=== PATIENT | male | born 1995 | race Caucasian/White ===

== ENCOUNTER 2017-09-23 13:57 | Emergency (ER) | payer BC ==
[~2017-09-23] VITALS: Ht 167.6 cm; Wt 60.0 kg
[2017-09-23 14:03] VITALS: TEMP 36.6; Ht 167.6 cm; Wt 60.0 kg
[2017-09-23] MEDS ORDERED: SODIUM CHLORIDE 0.9% 1000ML 1,000 ML IV STA ×2 (14:26→14:55)
--- NOTE | 2017-09-23 14:42 | DIAGNOSTIC IMAGING REPORT ---
CHEST ONE VIEW PORTABLE CLINICAL HISTORY: Hemoptysis FEVER COMPARISON STUDY: No previous studies for comparison. FINDINGS: The heart is normal in size. There are bilateral lower lung zone airspace opacities, possibly representing a pneumonitis. Clinical and radiographic follow-up is recommended. There are no pleural effusions. There is no pneumomediastinum. There is no pneumothorax.[ IMPRESSION: Bilateral lower lung zone airspace opacities, possibly representing pneumonia. Clinical and radiographic follow-up is recommended. Electronically signed by: Richard Oh M.D. 09/23/2017 2:41 PM Dictated Date/Time: 09/23/2017 2:39 PM
[2017-09-23 15:01] LABS: BASO % 0.3 %; BASO ABS # 0.02 K/uL (0-0.2); EOS % 3.8 %; EOS ABS # 0.29 K/uL (0-0.5); HEMATOCRIT 39.5 % (42-52); HEMOGLOBIN 14.9 g/dL (14.0-18.0); IG# 0.02 K/uL (0.00-0.02); LYMPH % 15.3 %; LYMPH ABS # 1.15 K/uL (1.2-3.4); MEAN CELL VOLUME 86.6 fL (80-100); MEAN CORPUSCULAR HEMOGLOBIN 32.7 pg (25-34); MEAN CORPUSCULAR HGB CONC 37.7 g/dl (32-36); MEAN PLATELET VOLUME 8.4 fL (7.4-10.4); MONO % 8.4 %; MONO ABS # 0.63 K/uL (0.11-0.59); NEUT % 71.9 %; NEUT ABS # 5.43 K/uL (1.4-6.5); PLATELET COUNT 185 K/uL (130-400); RED CELL DISTRIBUTION WIDTH SD 38.1 fL (36.4-46.3); WHITE BLOOD COUNT 7.54 K/uL (4.8-10.8)
[2017-09-23 15:12] LABS: INR 1.1 (0.9-1.1); PTT PATIENT 28.9 SECONDS (21.0-31.0)
[2017-09-23] MEDS ORDERED: EPP3/2 IM (15:12)
[2017-09-23] MEDS ORDERED: FLVHFA110 INH ×2 (15:12→16:38)
[2017-09-23] MEDS ORDERED: PRVHFAIN INH ×2 (15:12→16:38)
[2017-09-23 15:32] LABS: ALBUMIN 3.6 gm/dl (3.4-5.0); ALT/SGPT 16 U/L (12-78); BLOOD UREA NITROGEN 10 mg/dl (7-18); CALCIUM 8.7 mg/dl (8.5-10.1); CARBON DIOXIDE 25 mmol/L (21-32); CREATININE 0.86 mg/dl (0.60-1.40); GLUCOSE 126 mg/dl (70-99); LIPASE 90 U/L (73-393); POTASSIUM 3.6 mmol/L (3.5-5.1); SODIUM 135 mmol/L (136-145)
[2017-09-23 15:36] LABS: ALKALINE PHOSPHATASE 81 U/L (45-117); AST/SGOT 15 U/L (15-37); TOTAL PROTEIN 7.7 gm/dl (6.4-8.2)
--- NOTE | 2017-09-23 16:24 | DIAGNOSTIC IMAGING REPORT ---
CT ANGIOGRAM OF THE CHEST CLINICAL HISTORY: Pleuritic chest pain. Hemoptysis. COMPARISON STUDY: Chest x-ray dated 09/23/2017 TECHNIQUE: Following the IV administration of 93 mL of Optiray-320, CT angiogram of the thorax was performed from the thoracic inlet to the lung bases utilizing the pulmonary embolus protocol. Images are reviewed in the axial, sagittal, and coronal planes. IV contrast was administered without complication. MIP imaging was performed. A dose lowering technique was utilized adhering to the principles of ALARA. CT DOSE: 254.17 mGy.cm FINDINGS: There is mild there are enlarged subcarinal lymph nodes measuring 17 mm in short axis. There is mild bilateral hilar lymphadenopathy. There was no evidence of thoracic aortic dilatation. There were no pulmonary artery filling defects to indicate acute pulmonary embolism. No pleural effusions are visualized. There are multifocal airspace opacities, most pronounced within the lower lobes. There are also right middle lobe airspace opacities. There is a right upper lobe point nodules, including a 1 cm ill-defined nodule as visualized in image #[id number].] Testicle basis, these are inflammatory. Imaging subsequent to treatment is recommended in follow-up.. IMPRESSION: 1. Multifocal airspace opacities, likely representing a multifocal pneumonia. 2. 1 cm right upper lobe pulmonary nodule, likely inflammatory 3. Mild mediastinal and hilar lymphadenopathy, likely reactive 4. No evidence of acute pulmonary embolism 5. Repeat imaging subsequent to appropriate antibiotic treatment is recommended in follow-up Electronically signed by: Richard Oh M.D. 09/23/2017 4:22 PM Dictated Date/Time: 09/23/2017 4:17 PM
[2017-09-23] MEDS ORDERED: DOXYCYCLINE HYCLATE 100 MG CAP PO ONE (16:30)
[2017-09-23] MEDS ORDERED: AMOXICILLIN/CLAVULANATE TAB 875 MG TAB PO ONE (16:30)
[2017-09-23] MEDS ORDERED: AMOX875T PO (16:38)
[2017-09-23] MEDS ORDERED: DOXY100C76 PO (16:38)
--- NOTE | 2017-09-23 16:38 | EMERGENCY ROOM VISIT NOTE ---
History First contact with patient: 14:07 Chief Complaint: COUGH Stated Complaint: COUGHING UP BLOOD & FEVER Nursing Triage Summary: pt to the ED with c/o retirement through his trip in [facility] pt developed fever chills sweats and started to cough up blood and then was coughing so hard he vomitted pt c/o left sided rib pain History of Present Illness Patient is a 21-year-old [employer] student with past medical history significant for asthma who presents the emergency department accompanied by his girlfriend for evaluation of cold sweats, cough and hemoptysis. Patient reports that he traveled to [facility] to visit friends for spring, he left on 09/15. He states that about 3 days ago he woke acutely with cold sweats, and had 2 episodes of vomiting. The cold sweats persisted the following day, and he reports that he developed a cough that at times was productive of a scant amount of blood-tinged mucus. Later that day he felt well enough to go on a 2 hour hike and felt completely fine. He has subsequently noticed left sided rib pain, that is worse with deep breathing and coughing, and states that the cough has become more productive of bloody sputum. He reports that the blood is streaked in leyva mucus, but when he coughed today there was more blood than mucus. He denies any further cold sweats, he was not able to check his temperature with a thermometer to see if he actually had a fever. He did not take any Tylenol or ibuprofen, has not been using NSAIDs or aspirin products excessively. He does admit to drinking daily while he was on vacation, has not had any alcohol in the last 2 days. Also admits to smoking marijuana daily including last evening. He has never had symptoms similar to this previously. He has a history of asthma which is generally well controlled, he is on Flovent and albuterol. He reports that he is albuterol inhaler regularly through the last week. He denies any other upper respiratory symptoms including sinus or nasal congestion or ear pain or sore throat. He denies any posterior neck pain or stiffness. No skin rashes. He denies any bleeding gums, epistaxis, hematuria, blood in his bowel movements or easy bruising or bleeding. There is no personal or family history of DVT or PE. Review of Systems Review of systems as per HPI. All other systems reviewed were negative. 10 systems reviewed. Past Medical/Surgical History Medical Problems: (1) Asthma Surgical Problems: (1) H/O shoulder surgery Electronic medical records are reviewed and summarized as above/below. See Problem List. Social History Smoking Status: Never Smoker Alcohol Use: heavy Drug Use: marijuana Housing Status: lives with roommate Occupation Status: [employer] student Current/Historical Medications Scheduled Amoxicillin & Pot Clavulanate (Augmentin 875-125 mg), 1 TAB PO BID Doxycycline Monohydrate (Monodox), 100 MG PO BID Fluticasone Propionate (Flovent Hfa), 2 PUFFS INH BID Scheduled PRN Albuterol (Ventolin Hfa), 2 PUFFS INH Q4H PRN for Rescue/Asthma Symptoms Epinephrine (Epipen), 0.3 MG IM UD PRN for Allergic Reaction Physical Exam Vital Signs Date Time Temp Pulse Resp B/P (MAP) Pulse Ox O2 Delivery O2 Flow Rate FiO2 09/23/17 16:50 97 18 121/74 98 09/23/17 16:37 97 18 121/74 98 Room Air 09/23/17 15:49 81 18 120/73 98 Room Air 09/23/17 14:03 36.6 76 16 136/90 97 Physical Exam CONSTITUTIONAL: Patient is a well-appearing 21-year-old white male who is awake and alert and seated on the gurney in no acute distress. He has no cough during the entire history or exam. No conversational dyspnea. EYES: Pupils equal, round, reactive to light and accommodation. EOMs intact without nystagmus. Sclera are anicteric. ENT: Tympanic membranes intact, with normal landmarks. External canals are clear. Oral and nasopharynx are clear. Mucous membranes are moist, no lesions , tongue and gums appear normal. NECK: No bruits auscultated. Supple without lymphadenopathy. No thyromegaly. No meningeal signs. Full active range of motion without discomfort. CARDIOVASCULAR: Regular rate and rhythm, with normal S1 and S2, no murmur or gallop or rub is heard. No carotid bruits auscultated. No JVD. Peripheral pulses easy to palpable. RESPIRATORY: Breath sounds equal and clear to auscultation without wheezes, rales, or rhonchi heard. Slightly diminished breath sounds at the left lung base. Full and equal chest expansion without accessory muscle use or retractions. GI: Bowel sounds are present. Abdomen is soft, nontender, nondistended. No organomegaly. No pulsatile masses. No guarding or rebound. MUSCULOSKELETAL: Full range of motion of extremities x 4 with good strength. No cyanosis, edema, joint tenderness or swelling. No deformity. INTEGUMENTARY: No lesions or rash, normal skin turgor. NEUROLOGICAL: Alert, oriented, and cooperative. Flat affect. Cranial nerves, sensation and strength grossly intact. Pupils round, equal, and react to light , EOMs are full. LYMPH: No lymphadenopathy. Medical Decision & Procedures ER Provider Diagnostic Interpretation: CHEST ONE VIEW PORTABLE CLINICAL HISTORY: Hemoptysis FEVER COMPARISON STUDY: No previous studies for comparison. FINDINGS: The heart is normal in size. There are bilateral lower lung zone airspace opacities, possibly representing a pneumonitis. Clinical and radiographic follow-up is recommended. There are no pleural effusions. There is no pneumomediastinum. There is no pneumothorax. IMPRESSION: Bilateral lower lung zone airspace opacities, possibly representing pneumonia. Clinical and radiographic follow-up is recommended. CT ANGIOGRAM OF THE CHEST CLINICAL HISTORY: Pleuritic chest pain. Hemoptysis. COMPARISON STUDY: Chest x-ray dated 09/23/2017 TECHNIQUE: Following the IV administration of 93 mL of Optiray-320, CT angiogram of the thorax was performed from the thoracic inlet to the lung bases utilizing the pulmonary embolus protocol. Images are reviewed in the axial, sagittal, and coronal planes. IV contrast was administered without complication. MIP imaging was performed. A dose lowering technique was utilized adhering to the principles of ALARA. CT DOSE: 254.17 mGy.cm FINDINGS: There is mild there are enlarged subcarinal lymph nodes measuring 17 mm in short axis. There is mild bilateral hilar lymphadenopathy. There was no evidence of thoracic aortic dilatation. There were no pulmonary artery filling defects to indicate acute pulmonary embolism. No pleural effusions are visualized. There are multifocal airspace opacities, most pronounced within the lower lobes. There are also right middle lobe airspace opacities. There is a right upper lobe point nodules, including a 1 cm ill-defined nodule as visualized in image #[id number].] Testicle basis, these are inflammatory. Imaging subsequent to treatment is recommended in follow-up.. IMPRESSION: 1. Multifocal airspace opacities, likely representing a multifocal pneumonia. 2. 1 cm right upper lobe pulmonary nodule, likely inflammatory 3. Mild mediastinal and hilar lymphadenopathy, likely reactive 4. No evidence of acute pulmonary embolism 5. Repeat imaging subsequent to appropriate antibiotic treatment is recommended in follow-up Laboratory Results 09/23/17 14:50 Red Blood Count 4.56, Mean Corpuscular Volume 86.6, Mean Corpuscular Hemoglobin 32.7, Mean Corpuscular Hemoglobin Concent 37.7, Mean Platelet Volume 8.4, Neutrophils (%) (Auto) 71.9, Lymphocytes (%) (Auto) 15.3, Monocytes (%) (Auto) 8.4, Eosinophils (%) (Auto) 3.8, Basophils (%) (Auto) 0.3, Neutrophils # (Auto) 5.43, Lymphocytes # (Auto) 1.15, Monocytes # (Auto) 0.63, Eosinophils # (Auto) 0.29, Basophils # (Auto) 0.02 09/23/17 14:50 Test 09/23/17 14:50 White Blood Count 7.54 K/uL (4.8-10.8) Red Blood Count 4.56 M/uL (4.7-6.1) Hemoglobin 14.9 g/dL (14.0-18.0) Hematocrit 39.5 % (42-52) Mean Corpuscular Volume 86.6 fL (80-100) Mean Corpuscular Hemoglobin 32.7 pg (25-34) Mean Corpuscular Hemoglobin Concent 37.7 g/dl (32-36) Platelet Count 185 K/uL (130-400) Mean Platelet Volume 8.4 fL (7.4-10.4) Neutrophils (%) (Auto) 71.9 % Lymphocytes (%) (Auto) 15.3 % Monocytes (%) (Auto) 8.4 % Eosinophils (%) (Auto) 3.8 % Basophils (%) (Auto) 0.3 % Neutrophils # (Auto) 5.43 K/uL (1.4-6.5) Lymphocytes # (Auto) 1.15 K/uL (1.2-3.4) Monocytes # (Auto) 0.63 K/uL (0.11-0.59) Eosinophils # (Auto) 0.29 K/uL (0-0.5) Basophils # (Auto) 0.02 K/uL (0-0.2) RDW Standard Deviation 38.1 fL (36.4-46.3) RDW Coefficient of Variation 12.0 % (11.5-14.5) Immature Granulocyte % (Auto) 0.3 % Immature Granulocyte # (Auto) 0.02 K/uL (0.00-0.02) Erythrocyte Sedimentation Rate 20 mm/hr (0-14) Prothrombin Time 11.4 SECONDS (9.0-12.0) Prothromb Time International Ratio 1.1 (0.9-1.1) Activated Partial Thromboplast Time 28.9 SECONDS (21.0-31.0) Partial Thromboplastin Ratio 1.1 Anion Gap 9.0 mmol/L (3-11) Est Creatinine Clear Calc Drug Dose 114.3 ml/min Estimated GFR () 142.7 Estimated GFR (Non- 123.1 BUN/Creatinine Ratio 11.8 (10-20) Calcium Level 8.7 mg/dl (8.5-10.1) Total Bilirubin 1.8 mg/dl (0.2-1) Aspartate Amino Transf (AST/SGOT) 15 U/L (15-37) Alanine Aminotransferase (ALT/SGPT) 16 U/L (12-78) Alkaline Phosphatase 81 U/L (45-117) Troponin I < 0.015 ng/ml (0-0.045) C-Reactive Protein 11.60 mg/dl (0-0.29) Total Protein 7.7 gm/dl (6.4-8.2) Albumin 3.6 gm/dl (3.4-5.0) Globulin 4.1 gm/dl (2.5-4.0) Albumin/Globulin Ratio 0.9 (0.9-2) Lipase 90 U/L (73-393) Medications Administered Medications (Trade) Dose Ordered Sig/Palma Route Start Time Stop Time Status Last Admin Dose Admin Sodium Chloride 1,000 ml @ 999 mls/hr Q1H1M STAT IV 09/23/17 14:26 09/23/17 15:26 DC 09/23/17 14:50 999 MLS/HR Sodium Chloride 1,000 ml @ 999 mls/hr Q1H1M STAT IV 09/23/17 14:55 09/23/17 15:55 DC 09/23/17 15:15 999 MLS/HR Amoxicillin/ Clavulanate Potassium (Augmentin Tab) 875 mg ONE ONCE PO 09/23/17 16:30 09/23/17 16:32 DC 09/23/17 16:47 875 MG Doxycycline Hyclate (Vibramycin Cap) 100 mg ONE ONCE PO 09/23/17 16:30 09/23/17 16:32 DC 09/23/17 16:47 100 MG ECG Per My Interpretation Indication: chest pain Rate (beats per minute): 65 Rhythm: sinus with SA Findings: no acute ischemic change, no ectopy Comparison ECG Date: no prior available ED Course The patient was seen and assessed as above. He does not have any old records at our facility for review. He has a history of asthma, and presents the emergency department for evaluation of cold sweats, left rib pain and hemoptysis. On exam, he is afebrile and well-appearing. He is in no respiratory distress. IV lock was initiated. 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 EKG was performed and was as noted above. The patient was hydrated with normal saline solution. He received a total of 2 L in the emergency department. Laboratory studies including CBC with differential, coags, CMP, lipase, sed rate, CRP and troponin were drawn. Chest x-ray was obtained, and noted bilateral lower lung zone airspace opacities possibly representing pneumonia. There is no evidence for pneumothorax, pleural effusion or pneumomediastinum. Tthe patient's laboratory studies were largely unremarkable. His white count is not elevated. There is no left shift or bandemia. H&H is 14.9 and 39.5, platelet count 185,000. He has slight elevation of his sed rate and CRP, likely related to the pneumonia. He did have 3+ urine ketones on his urine dip , prompting the IV hydration, but otherwise urine was clear. Electrolytes without significant abnormality. Renal function is normal. He has slight elevation of his total bilirubin, otherwise transaminases are normal. Troponin is negative. Lipase is not indicative of acute pancreatitis. Given the x-ray findings, the pleuritic left rib pain, hemoptysis, and the patient's recent travel to [place] I did elect to proceed with a CT scan to assess for PE. CT did not demonstrate any evidence for pulmonary embolism. There were multifocal airspace opacities, most pronounced within the lower lobes , also a right mid lobe airspace opacity, likely representing a multifocal pneumonia. There was a right upper lobe pulmonary nodule, likely inflammatory in nature and mild mediastinal and hilar lymphadenopathy, likely reactive. Repeat imaging to ensure resolution was recommended. Patient history, presentation and ED workup were reviewed with attending physician, and treatment plan was discussed. All laboratory and diagnostic imaging studies were discussed with the patient at length.The patient will be placed on Augmentin and doxycycline, he is already on albuterol and Flovent inhalers. His exam is otherwise unremarkable, it was not felt that any steroids were indicated at this time. The patient is afebrile and well- appearing otherwise, he does not have any findings concerning for Sirs/sepsis. Differential diagnoses entertained included asthma exacerbation, pulmonary embolism, pneumonia, bronchitis, myocarditis, pericarditis, pneumothorax, musculoskeletal, anxiety, costochondritis, mass or malignancy, among others. The patient was educated on the worrisome signs or symptoms for which she should return to the emergency department for reassessment. He was encouraged to follow-up with [facility] for recheck and follow-up imaging once he has completed his antibiotics. Patient expressed understanding of this was agreeable. He was discharged home with his girlfriend in good condition. Medical Decision See emergency department course. Medication Reconcilliation Current Medication List: was personally reviewed by [facility] Blood Pressure Screening Patient's blood pressure: Normal blood pressure Blood pressure disposition: Did not require urgent referral Impression Primary Impression: Pneumonia Departure Information Prescriptions Doxycycline Monohydrate (Monodox) 100 Mg Cap 100 MG PO BID for 7 Days, #14 CAP Prov: Vivian Gibbs PA 09/23/17 Amoxicillin & Pot Clavulanate (Augmentin 875-125 mg) 1 Tab Tab 1 TAB PO BID, #20 TAB Prov: Vivian Gibbs PA 09/23/17 Fluticasone Propionate (Flovent Hfa) 120 Puffs/86050 Mcg Aero 2 PUFFS INH BID, #1 INHALER Prov: Vivian Gibbs PA 09/23/17 Albuterol (Ventolin Hfa) 60 Puffs/5400 Mcg Aers 2 PUFFS INH Q4H Y for Rescue/Asthma Symptoms, #1 INHALER Prov: Vivian Gibbs PA 09/23/17 Referrals No Doctor, Assigned (PCP) Patient Instructions My [facility] Additional Instructions Amoxicillin Clavulanate (Augmentin) 875mg: Take one pill twice daily for 10 days for your infection. All antibiotics can cause diarrhea. If this occurs and you feel worse or it does not resolve in 1-2 days follow up with your doctor or return to the Emergency Department as this could be signs of serious underlying problems. Any medication can cause an allergic reaction, stop the pills immediately and return to the ER for rash, hives, breathing difficulties, or swelling. Doxycycline 100mg: Take one pill twice daily for seven days for your infection. Take with food, but avoid dairy. Avoid prolonged sun exposure since this medication makes you temporarily more susceptible to sunburns. All antibiotics can cause diarrhea. If this occurs and you feel worse or it does not resolve in 1-2 days follow up with your doctor or return to the Emergency Department as this could be signs of serious underlying problems. Any medication can cause an allergic reaction, stop the pills immediately and return to the ER for rash, hives, breathing difficulties, or swelling. Continue Albuterol and Flovent. Ibuprofen(Motrin, Advil) may be used for fever or pain. Use 600mg every six hours as needed. Take with food. Avoid using more than 2400mg in a 24 hour period. Do not use 2400mg per day for more than three consecutive days without physician direction. Prolonged inappropriate use can lead to stomach upset or ulcers. This is available over the counter and typically comes in 200mg tablets. (AND/OR) Acetaminophen(Tylenol) may be used for fever or pain. Use 1000mg every eight hours as needed. Avoid using more than 3000mg in a 24 hour period. This is available over the counter. Controlling your fever with Tylenol and Ibuprofen as above will make you feel better. Rest and drink plenty of fluids. Avoid strenuous activity until your symptoms resolve and your breathing returns to normal. Continue current medications. Return to the ER for chest pain, difficulty breathing, persistent fevers, vomiting, worsening of your condition, or as needed Follow-up with [facility] in 2-3 weeks for recheck and repeat chest x-ray to ensure resolution of your pneumonia. Problem Qualifiers Primary Impression: Pneumonia Pneumonia type: due to unspecified organism Laterality: bilateral Lung location: lower lobe of lung Qualified Codes: J18.1 - Lobar pneumonia, unspecified organism
[2017-09-23 16:50] VITALS: BP 121/74; PULSE 97; O2SAT 98
== END 2017-09-23 16:50 | disposition home or self-care (01) ==
LOC: C.EDB 14:01
DX: J18.9 Pneumonia, unspecified organism (principal); R82.4 Acetonuria; J45.909 Unspecified asthma, uncomplicated; F12.90 Cannabis use, unspecified, uncomplicated; Z72.89 Other problems related to lifestyle

== ENCOUNTER 2017-09-30 16:18 | Emergency (ER) | payer BC ==
[~2017-09-30] VITALS: Ht 167.6 cm; Wt 61.4 kg
[~2017-09-30 16:18] MED LIST: AMOX875T PO; DOXY100C76 PO; EPP3/2 IM; FLVHFA110 INH; PRVHFAIN INH
[2017-09-30 16:27] VITALS: Ht 167.6 cm; Wt 61.4 kg
[2017-09-30] MEDS ORDERED: METHYLPREDNISOLONE 125 MG VIAL IV STA (16:42)
[2017-09-30] MEDS ORDERED: ALBUT/IPRATROP 3MG/0.5MG NEB 3 ML VIAL INH STA (16:42)
[2017-09-30] MEDS ORDERED: KETOROLAC TROMETHAMINE 30 MG/ML VIAL IV STA (16:42)
[2017-09-30] MEDS ORDERED: ACETAMINOPHEN 500 MG TAB PO STA (16:42)
--- NOTE | 2017-09-30 16:55 | EMERGENCY ROOM VISIT NOTE ---
History Report prepared by Frieda: Ted Beckwith Under the Supervision of: Dr. Ric Tillman M.D. First contact with patient: 16:33 Chief Complaint: COUGH Stated Complaint: ANTIBIOTIC NOT WORKING,CONGESTED History of Present Illness The patient is a 21 year old male who presents to the Emergency Room with complaints of intermittent left sided back pain that began a week ago. He rates his discomfort as an 8/10 in severity. He reports his pain is worsened with breathing, coughing, moving, laying down, and standing up. He states that his pain is relieved with sitting. The patient describes the pain as a shooting sharp pain. The patient reports that he developed chest pressure a couple of weeks ago, which caused him to go to [facility]. He reports he had an x-ray done that was negative. The patient states that he recently went on a trip to [facility] when he started to cough up bloody and dark mucous. He reports that he developed a fever and shortness of breath 9 days ago. He states that he came to the ED on September 23 for his cough and he had a CT done. The patient states that his CT was negative for a clot, but states he was diagnosed with pneumonia. He reports that he was sent home with Augmentin and Doxycycline, which he admits he has been taking. The patient states that his symptoms from his pneumonia have been persistent and denies any worsening or alleviation of symptoms. He states that he developed a sharp pain on the left side of his back about a week ago that is present upon coughing, breathing, moving, standing up, and laying flat. The patient states that he has been taking Advil for his symptoms without any relief of symptoms. He reports that he has been eating and drinking normally. The patient reports that he has a history of pneumonia, which he had three times in the past, he also has a history of asthma. Source of History: patient Onset: a week ago Position: back (left) Symptom Intensity: 8/10 Timing: intermittent Modifying Factors (Worsening): breathing, movement, other (coughing, standing up, laying down) Modifying Factors (Relieving): other (sitting, Advil) Associated Symptoms: + fevers, + cough, + SOB Review of Systems See HPI for pertinent positives & negatives. A total of 10 systems reviewed and were otherwise negative. Past Medical & Surgical Medical Problems: (1) Asthma Surgical Problems: (1) H/O shoulder surgery Family History Patient reports no known family medical history. Social History Smoking Status: Current Some Day Smoker Alcohol Use: heavy Drug Use: marijuana Housing Status: lives with roommate Occupation Status: [employer] student Current/Historical Medications Scheduled Amoxicillin & Pot Clavulanate (Augmentin 875-125 mg), 1 TAB PO BID Doxycycline (Monohydrate) (Monodox), 100 MG PO BID Fluticasone Propionate (Flovent Hfa), 2 PUFFS INH BID Scheduled PRN Albuterol Hfa (Ventolin Hfa), 2 PUFFS INH Q4H PRN for SOB/ASTHMA SYMPTOMS Epinephrine (Epipen), 0.3 MG IM UD PRN for Allergic Reaction Allergies Coded Allergies: Nut Tree (Verified Allergy, Severe, ANAPHYLAXIS, 09/30/17) Pea (Verified Allergy, Severe, HIVES, 09/30/17) Physical Exam Vital Signs Date Time Temp Pulse Resp B/P (MAP) Pulse Ox O2 Delivery O2 Flow Rate FiO2 09/30/17 18:41 71 18 131/71 95 Room Air 09/30/17 16:27 36.5 88 18 141/82 93 Room Air Physical Exam GENERAL: Patient is in no acute distress. HEENT: No acute trauma, normocephalic atraumatic, mucous membranes moist, no nasal congestion, no scleral icterus. NECK: No stridor, no adenopathy, no meningismus, trachea is midline. LUNGS: Diminished breath sounds bilaterally, no wheeze, no rhonchi. HEART: Without murmurs gallops or rubs, regular rate and rhythm. ABDOMEN: Soft, nontender, bowel sounds positive, no hernias, no peritonitis. BACK: No discomfort with palpation of the lower thoracic back on the left or anywhere. No discomfort with palpation or compression of his ribs. EXTREMITIES: No cyanosis or edema, full range of motion of all the joints without pain or difficulty, no signs for acute trauma. NEUROLOGIC: Oriented x 3, no acute motor or sensory deficits, no focal weakness. SKIN: No rash, no jaundice, no diaphoresis. Medical Decision & Procedures ER Provider Diagnostic Interpretation: Radiology results as stated below per my review and radiologist interpretation: CHEST 2 VIEWS ROUTINE HISTORY: 21 years-old Male EVALUATE RESPIRATORY DISTRESS.DYSPNEA acute respiratory distress COMPARISON: Chest radiograph and CTA chest 09/23/2017 TECHNIQUE: PA and lateral views of the chest FINDINGS: Cardiomediastinal and hilar silhouettes are within normal limits. No pneumothorax. No large pleural effusion or overt pulmonary edema. There are persistent subsegmental bibasilar consolidative opacities which have not significantly changed from comparison. Bones appear grossly intact. IMPRESSION: Persistent subsegmental bibasilar consolidative opacities have not significantly changed from comparison suggesting ongoing infectious or inflammatory pneumonitis. Continued follow-up recommended. The above report was generated using voice recognition software. It may contain grammatical, syntax or spelling errors. Electronically signed by: Scooby Rogers M.D. 09/30/2017 5:33 PM Dictated Date/Time: 09/30/2017 5:30 PM Laboratory Results 09/30/17 16:58 Red Blood Count 5.11, Mean Corpuscular Volume 86.3, Mean Corpuscular Hemoglobin 32.3, Mean Corpuscular Hemoglobin Concent 37.4, Mean Platelet Volume 8.2, Neutrophils (%) (Auto) 69.9, Lymphocytes (%) (Auto) 18.3, Monocytes (%) (Auto) 6.3, Eosinophils (%) (Auto) 4.8, Basophils (%) (Auto) 0.4, Neutrophils # (Auto) 5.25, Lymphocytes # (Auto) 1.37, Monocytes # (Auto) 0.47, Eosinophils # (Auto) 0.36, Basophils # (Auto) 0.03 09/30/17 16:58 Test 09/30/17 16:58 09/30/17 18:15 White Blood Count 7.50 K/uL (4.8-10.8) Red Blood Count 5.11 M/uL (4.7-6.1) Hemoglobin 16.5 g/dL (14.0-18.0) Hematocrit 44.1 % (42-52) Mean Corpuscular Volume 86.3 fL (80-100) Mean Corpuscular Hemoglobin 32.3 pg (25-34) Mean Corpuscular Hemoglobin Concent 37.4 g/dl (32-36) Platelet Count 284 K/uL (130-400) Mean Platelet Volume 8.2 fL (7.4-10.4) Neutrophils (%) (Auto) 69.9 % Lymphocytes (%) (Auto) 18.3 % Monocytes (%) (Auto) 6.3 % Eosinophils (%) (Auto) 4.8 % Basophils (%) (Auto) 0.4 % Neutrophils # (Auto) 5.25 K/uL (1.4-6.5) Lymphocytes # (Auto) 1.37 K/uL (1.2-3.4) Monocytes # (Auto) 0.47 K/uL (0.11-0.59) Eosinophils # (Auto) 0.36 K/uL (0-0.5) Basophils # (Auto) 0.03 K/uL (0-0.2) RDW Standard Deviation 37.8 fL (36.4-46.3) RDW Coefficient of Variation 12.0 % (11.5-14.5) Immature Granulocyte % (Auto) 0.3 % Immature Granulocyte # (Auto) 0.02 K/uL (0.00-0.02) Erythrocyte Sedimentation Rate 15 mm/hr (0-14) Anion Gap 6.0 mmol/L (3-11) Est Creatinine Clear Calc Drug Dose 99.6 ml/min Estimated GFR () 121.8 Estimated GFR (Non- 105.1 BUN/Creatinine Ratio 16.6 (10-20) Calcium Level 8.8 mg/dl (8.5-10.1) Total Bilirubin 0.6 mg/dl (0.2-1) Aspartate Amino Transf (AST/SGOT) 13 U/L (15-37) Alanine Aminotransferase (ALT/SGPT) 16 U/L (12-78) Alkaline Phosphatase 86 U/L (45-117) Troponin I < 0.015 ng/ml (0-0.045) C-Reactive Protein 1.02 mg/dl (0-0.29) Total Protein 7.9 gm/dl (6.4-8.2) Albumin 3.6 gm/dl (3.4-5.0) Globulin 4.3 gm/dl (2.5-4.0) Albumin/Globulin Ratio 0.8 (0.9-2) Laboratory results reviewed by me. Medications Administered Medications (Trade) Dose Ordered Sig/Palma Route Start Time Stop Time Status Last Admin Dose Admin Methylprednisolone Sodium Succinate (Solu-Medrol IV) 80 mg NOW STAT IV 09/30/17 16:42 09/30/17 16:46 DC 09/30/17 17:21 80 MG Ketorolac Tromethamine (Toradol Inj) 30 mg NOW STAT IV 09/30/17 16:42 09/30/17 16:47 DC 09/30/17 17:21 30 MG Albuterol/ Ipratropium (Duoneb) 3 ml NOW STAT INH 09/30/17 16:42 09/30/17 16:47 DC 09/30/17 17:17 3 ML Levofloxacin (Levaquin / D5W) 750 mg NOW STAT IV 09/30/17 17:54 09/30/17 17:56 DC 09/30/17 18:41 750 MG ECG Per My Interpretation Indication: SOB/dyspnea Rate (beats per minute): 73 Rhythm: normal sinus Findings: other (Mild diffuse early repolarization, No PVCs, No PACs) ED Course 1637: The patient was evaluated in room A03. A complete history and physical exam was performed. 164: Ordered Duoneb 3 ml INH, Toradol Injection 30 mg IV, Solu-Medrol 80 mg IV. 174: I discussed the patients case with Dr. Sanford, [facility] Pulmonology. He recommended hospitalization and IV antibiotics. He asked that I order an ultrasound of both lower extremities. 175: Ordered Levofloxacin 750 mg IV. 1800: Ordered Zosyn 4.5 gm IV. 180: I reevaluated the patient and updated him on his results. 1817: I discussed the patients case with Dr. Huertas, [facility] Hospitalist. He understands the patients condition and agrees to accept the patient. The patient will be further evaluated. Medical Decision The patient is a 21 year old male who presents to the Emergency Room with complaints of intermittent left sided back pain that began a week ago. Differential diagnoses considered include pleurisy, failed outpatient treatment , pneumonia, pneumothorax, rib fracture, musculoskeletal pain, pericarditis, myocarditis. There is no leukocytosis or concerning anemia. No significant electrolyte abnormality, kidney failure or hepatitis. CRP and sed rate are somewhat elevated but improved compared to the values from a week ago. Blood cultures are pending. Influenza test is pending. Chest film shows similar findings to his last visit, the pneumonia is still present. The patient was given a DuoNeb, IV Levaquin and IV Zosyn. He received IV Solu- Medrol and IV Toradol. The patient is resting. I discussed his case with pulmonology, the patient needs hospitalization for further workup and for IV antibiotic therapy. I discussed my findings with the patient and case management. I talked with the on-call hospitalist. The patient is failing treatment as an outpatient for pneumonia. Hospitalization is required. Medication Reconcilliation Current Medication List: was personally reviewed by me Blood Pressure Screening Patient's blood pressure: Elevated blood pressure Blood pressure disposition: Elevated BP felt to be situational Consults Time Called: 173 Consulting Physician: Dr. Sanford, [facility] Pulmonology Returned Call: 174 I discussed the patients case with Dr. Snaford [facility] Pulmonology. He recommended hospitalization and IV antibiotics. He asked that I order an ultrasound of both lower extremities. Additional Consults: Time Called: 174 Consulted Physician: Dr. Huertas [facility] Hospitalist Returned Call: 181 Additional Comments: I discussed the patients case with Dr. Huertas [facility] Hospitalist. He understands the patients condition and agrees to accept the patient. The patient will be further evaluated. Impression Primary Impression: PNA (pneumonia) Additional Impressions: Pleuritic chest pain Failure of outpatient treatment Scribe Attestation The scribe's documentation has been prepared under my direction and personally reviewed by me in its entirety. I confirm that the note above accurately reflects all work, treatment, procedures, and medical decision making performed by me. Departure Information Dispostion Being Evaluated By Hospitalist Referrals No Doctor, Assigned (PCP) Patient Instructions My [facility] Problem Qualifiers
[2017-09-30 17:17] LABS: BASO % 0.4 %; BASO ABS # 0.03 K/uL (0-0.2); EOS % 4.8 %; EOS ABS # 0.36 K/uL (0-0.5); HEMATOCRIT 44.1 % (42-52); HEMOGLOBIN 16.5 g/dL (14.0-18.0); IG# 0.02 K/uL (0.00-0.02); LYMPH % 18.3 %; LYMPH ABS # 1.37 K/uL (1.2-3.4); MEAN CELL VOLUME 86.3 fL (80-100); MEAN CORPUSCULAR HEMOGLOBIN 32.3 pg (25-34); MEAN CORPUSCULAR HGB CONC 37.4 g/dl (32-36); MEAN PLATELET VOLUME 8.2 fL (7.4-10.4); MONO % 6.3 %; MONO ABS # 0.47 K/uL (0.11-0.59); NEUT % 69.9 %; NEUT ABS # 5.25 K/uL (1.4-6.5); PLATELET COUNT 284 K/uL (130-400); RED CELL DISTRIBUTION WIDTH SD 37.8 fL (36.4-46.3)
--- NOTE | 2017-09-30 17:34 | DIAGNOSTIC IMAGING REPORT ---
CHEST 2 VIEWS ROUTINE HISTORY: 21 years-old Male EVALUATE RESPIRATORY DISTRESS.DYSPNEA acute respiratory distress COMPARISON: Chest radiograph and CTA chest 09/23/2017 TECHNIQUE: PA and lateral views of the chest FINDINGS: Cardiomediastinal and hilar silhouettes are within normal limits. No pneumothorax. No large pleural effusion or overt pulmonary edema. There are persistent subsegmental bibasilar consolidative opacities which have not significantly changed from comparison. Bones appear grossly intact. IMPRESSION: Persistent subsegmental bibasilar consolidative opacities have not significantly changed from comparison suggesting ongoing infectious or inflammatory pneumonitis. Continued follow-up recommended. The above report was generated using voice recognition software. It may contain grammatical, syntax or spelling errors. Electronically signed by: Scooby Rogers M.D. 09/30/2017 5:33 PM Dictated Date/Time: 09/30/2017 5:30 PM
[2017-09-30 17:40] LABS: ALBUMIN 3.6 gm/dl (3.4-5.0); ALT/SGPT 16 U/L (12-78); AST/SGOT 13 U/L (15-37); BLOOD UREA NITROGEN 17 mg/dl (7-18); CALCIUM 8.8 mg/dl (8.5-10.1); CARBON DIOXIDE 29 mmol/L (21-32); CREATININE 1.01 mg/dl (0.60-1.40); GLUCOSE 100 mg/dl (70-99); POTASSIUM 3.6 mmol/L (3.5-5.1); SODIUM 137 mmol/L (136-145)
[2017-09-30 17:44] LABS: ALKALINE PHOSPHATASE 86 U/L (45-117); TOTAL PROTEIN 7.9 gm/dl (6.4-8.2)
[2017-09-30] MEDS ORDERED: LEVAQUIN 750MG / 150ML D5W IV STA (17:54)
[2017-09-30] MEDS ORDERED: DOXY100C41 PO (17:57)
[2017-09-30] MEDS ORDERED: VNTHFA/IN INH (17:57)
[2017-09-30] MEDS ORDERED: FLVHFA110 INH (17:57)
[2017-09-30] MEDS ORDERED: AMOX875T PO (17:57)
[2017-09-30] MEDS ORDERED: PIPERACILLIN/TAZOBACTAM 4.5 GM/100ML D5W IV STA (18:00)
[2017-09-30] MEDS ORDERED: ACETAMINOPHEN 325 MG TAB PO PRN (18:45)
[2017-09-30] MEDS ORDERED: EPINEPHRINE ADULT AUTO-INJECT 0.3 MG SYR IM PRN (18:45)
[2017-09-30] MEDS ORDERED: POLYETHYLENE (MIRALAX) 17 GM PACK PO PRN (18:45)
[2017-09-30] MEDS ORDERED: MAGNESIUM HYDROXIDE SUSP 30 ML UDC PO PRN (18:45)
[2017-09-30] MEDS ORDERED: KETOROLAC TROMETHAMINE 30 MG/ML VIAL IV PRN (18:45)
[2017-09-30] MEDS ORDERED: ALBUTEROL HFA 8 GM INHALER INH PRN (18:45)
[2017-09-30] MEDS ORDERED: ONDANSETRON INJ 2 MG/ML 2 ML VIAL IV PRN (18:45)
[2017-09-30] MEDS ORDERED: ALUMINUM/MAGNESIUM/SIMETH (MAALOX MAX) 30 ML UDC PO PRN (18:45)
[2017-09-30] MEDS ORDERED: IV FLUIDS COMPLETED PRN (19:00)
[2017-09-30 19:12] LABS: INFLUENZA A PCR Neg for Influ A (NEG); INFLUENZA B PCR Neg for Influ B (NEG)
--- NOTE | 2017-09-30 19:13 | DIAGNOSTIC IMAGING REPORT ---
BILATERAL LOWER EXTREMITY VENOUS DOPPLER HISTORY: Acute hemoptysis with questioned DVT hemoptysis with neg chest ct COMPARISON STUDY: CTA of the chest 09/23/2017. FINDINGS: There is normal compressibility, flow, and augmentation within the bilateral lower extremity deep venous systems. IMPRESSION: No sonographic evidence of deep venous thrombosis within the right or left lower extremity. Electronically signed by: Scooby Rogers M.D. 09/30/2017 7:12 PM Dictated Date/Time: 09/30/2017 7:11 PM
[2017-09-30] MEDS ORDERED: IBUP-1050 PO (19:55)
--- NOTE | 2017-09-30 20:10 | Discharge Instructions ---
Discharge Instructions Date of Service Sep 30, 2017. Admission Reason for Admission: Antibiotic Not Working,Congested Discharge Discharge Diagnosis / Problem: likely slow to resolve pneumonia - see below Discharge Goals Goal(s): Diagnostic testing Activity Recommendations Activity Limitations: resume your previous activity . Instructions / Follow-Up Instructions / Follow-Up after further review, the most likely issue at hand is just a fairly dense, but slowly resolving pneumonia as we discussed: -an infection that hasn't gone away is fairly unlikely - the resolution of your "constitutional symptoms" (most notably the sweats), the fact that you're not getting worse, and most notably the negative procalcitonin (a lab test that, when negative, strongly reduces the probability that someone has an active lung infection) makes an infection that won't go away very unlikely. -the negative CT chest for blood clot last week, combined with the negative ultrasound for blood clot in your legs tonight, makes a blood clot with downstream lung tissue (called a pulmonary infarct) very unlikely -the other oddities that can "masquerade" as a pneumonia involve auto-immune and inflammatory processes that are VERY rare. simply by the low prevalence of those processes (vasculitis, wegeners, goodpastures to "put a face on them") it' s unlikely that this is what's going on. however, as we have our primary care team follow you through to "better" if you were to fail to improve then we can always double back and look for these kinds of problems later, especially since you're overall so stable -this appears far and away most consistent with what was a fairly dense pneumonia, with a lot of inflammation, that is just slowly getting better -the cough getting worse and more productive occurs in about 80% of people as they improve from a pneumonia - as the antibiotics and your immune system kill the bacteria, then your lungs are able to move things out. inflammation can have bleeding associated with it, so the coughing up blood is not at all abnormal with a dense, inflamed pneumonia. the change to darker often is indicative of the blood sitting in there for a while before it comes up. after a few more days (maybe a week at the most) of the cough being worse, i would expect it to get better day by day) -the chest pain is right in the area that the pneumonia was most dense. pneumonias create a lot of inflammation, and inflammation is a liquid process. as the inflammation oozes from your lung into your chest wall (the inflammation - NOT the infection - to be clear) your chest wall can then start to signal your brain the same kind of pain as if you got kicked in the chest. this is also fairly typical with a pneumonia to occur. we'll treat that with ibuprofen (over the counter is 200mg pills, take 3 at a time for now for a 600mg dose, up to every six hours as needed to keep the pain at bay. take it with some food to reduce the chances of upsetting your stomach); it should, much like the cough , start to get better over the next week or so then likely slowly go away -the shortness of breath, particularly with exertion (and coinciding fatigue ) are two of the most common symptoms we'll see for a while after a pneumonia. it would be more common than not for it to take until mid/late october for you to totally feel like yourself again as far as getting short-winded or tired. look for improvement in this respect in 3-4 day intervals (day to day improvement will happen, but it'll be so slow that it's hard to really probation officer - like watching grass grow) if you slowly improve like above, then everything would fit with a very inflamed pneumonia that was just slow to get better. we'll be working on setting you up with one of our family medicine residents ([facility], [address], ) -- the goal would be to get you in this week, then see the same doc about one a week until you're good as new - so that if anything "off the beaten path" were to occur then we'd be able to act on it right away. our nurse navigator takes care of these kinds of referrals/ appointments, so expect to hear from her - but as a safety net, if you haven't gotten a call by Sunday, please call the office at the above number, and let them know that Dr Huertas needs you seen by a resident this week, and then likely the same resident frequently until you're back to good as new. sometime in ~6 weeks they'll want to check one more follow up chest Xray to show that things have totally resolved. between here and there, the biggest "red flag" symptoms would be if you were to: -develop a new fever (this would not fit with the above, and would warrant getting checked out right away) -develop new/worse shortness of breath (if it gets your attention, get checked out) Current Hospital Diet Patient's current hospital diet: Regular Diet Discharge Diet Recommended Diet: Regular Diet Pending Studies Studies pending at discharge: no List of pending studies: blood cultures have been drawn, they will "cook" them in the microbiology lab for the next five days, but i do not expect any growth/findings at all Medical Emergencies . Who to Call and When: Medical Emergencies: If at any time you feel your situation is an emergency, please call 911 immediately. . Non-Emergent Contact Non-Emergency issues call your: Primary Care Provider (see above) . . "Provider Documentation" section prepared by Brock Huertas. .
[2017-09-30 20:13] VITALS: BP 117/74; PULSE 82; TEMP 36.5; O2SAT 95
--- NOTE | 2017-09-30 20:20 | Medical Consult ---
Consultation Date of Consultation: Sep 30, 2017. Attending Physician: Past Medical/Surgical History Medical Problems: (1) Asthma Status: Chronic (2) Failure of outpatient treatment Status: Acute (3) Pleuritic chest pain Status: Acute (4) PNA (pneumonia) Status: Acute (5) Pneumonia Status: Acute Family History Patient reports no known family medical history. Social History Smoking Status: Current Some Day Smoker Drug Use: marijuana Housing Status: lives with roommate Occupation Status: [employer] student Allergies Coded Allergies: Nut Tree (Verified Allergy, Severe, ANAPHYLAXIS, 09/30/17) Pea (Verified Allergy, Severe, HIVES, 09/30/17) Current Inpatient Medications Current Inpatient Medications Medications (Trade) Dose Ordered Sig/Palma Route Start Time Stop Time Status Last Admin Dose Admin Acetaminophen (Tylenol Tab) 650 mg Q4H PRN PO 09/30/17 18:45 10/30/17 18:44 Al Hydrox/Mg Hydrox/Simethicone (Maalox Max Susp) 15 ml Q4H PRN PO 09/30/17 18:45 10/30/17 18:44 Magnesium Hydroxide (Milk Of Magnesia Susp) 30 ml Q6H PRN PO 09/30/17 18:45 10/30/17 18:44 Polyethylene (Miralax Powder Packet) 17 gm DAILY PRN PO 09/30/17 18:45 10/30/17 18:44 Ondansetron HCl (Zofran Inj) 4 mg Q6H PRN IV 09/30/17 18:45 10/30/17 18:44 Albuterol (Ventolin Hfa Inhaler) 2 puffs Q4H PRN INH 09/30/17 18:45 10/30/17 18:44 UNV Epinephrine (Epipen) 0.3 mg UD PRN IM 09/30/17 18:45 10/30/17 18:44 UNV Fluticasone Propionate (Flovent Hfa 110MCG Inhaler) 2 puffs BID INH 09/30/17 21:00 10/30/17 20:59 UNV Ketorolac Tromethamine (Toradol Inj) 30 mg Q6H PRN IV 09/30/17 18:45 10/05/17 18:44 UNV Miscellaneous (Iv Fluids Completed) 1 ea PRN PRN N/A 09/30/17 19:00 09/30/18 18:59 Physical Exam Date Time Temp Pulse Resp B/P (MAP) Pulse Ox O2 Delivery O2 Flow Rate FiO2 09/30/17 20:13 36.5 82 16 95 Room Air 09/30/17 20:00 82 16 117/74 95 Room Air 09/30/17 18:41 71 18 131/71 95 Room Air 09/30/17 16:27 36.5 88 18 141/82 93 Room Air Laboratory Results Last 24 Hours Test 09/30/17 16:58 09/30/17 18:15 White Blood Count 7.50 K/uL Red Blood Count 5.11 M/uL Hemoglobin 16.5 g/dL Hematocrit 44.1 % Mean Corpuscular Volume 86.3 fL Mean Corpuscular Hemoglobin 32.3 pg Mean Corpuscular Hemoglobin Concent 37.4 g/dl Platelet Count 284 K/uL Mean Platelet Volume 8.2 fL Neutrophils (%) (Auto) 69.9 % Lymphocytes (%) (Auto) 18.3 % Monocytes (%) (Auto) 6.3 % Eosinophils (%) (Auto) 4.8 % Basophils (%) (Auto) 0.4 % Neutrophils # (Auto) 5.25 K/uL Lymphocytes # (Auto) 1.37 K/uL Monocytes # (Auto) 0.47 K/uL Eosinophils # (Auto) 0.36 K/uL Basophils # (Auto) 0.03 K/uL RDW Standard Deviation 37.8 fL RDW Coefficient of Variation 12.0 % Immature Granulocyte % (Auto) 0.3 % Immature Granulocyte # (Auto) 0.02 K/uL Erythrocyte Sedimentation Rate 15 mm/hr Sodium Level 137 mmol/L Potassium Level 3.6 mmol/L Chloride Level 103 mmol/L Carbon Dioxide Level 29 mmol/L Anion Gap 6.0 mmol/L Blood Urea Nitrogen 17 mg/dl Creatinine 1.01 mg/dl Est Creatinine Clear Calc Drug Dose 99.6 ml/min Estimated GFR () 121.8 Estimated GFR (Non- 105.1 BUN/Creatinine Ratio 16.6 Random Glucose 100 mg/dl Calcium Level 8.8 mg/dl Total Bilirubin 0.6 mg/dl Aspartate Amino Transf (AST/SGOT) 13 U/L Alanine Aminotransferase (ALT/SGPT) 16 U/L Alkaline Phosphatase 86 U/L Troponin I < 0.015 ng/ml C-Reactive Protein 1.02 mg/dl Total Protein 7.9 gm/dl Albumin 3.6 gm/dl Globulin 4.3 gm/dl Albumin/Globulin Ratio 0.8 Procalcitonin < 0.05 ng/ml Influenza Type A (RT-PCR) Neg for Influ A Influenza Type B (RT-PCR) Neg for Influ B Assessment & Plan consult #[id number]
[2017-09-30 20:21] VITALS: BP 114/88; PULSE 72; O2SAT 96
--- NOTE | 2017-09-30 20:51 | HISTORY & PHYSICAL EXAMINATION ---
DATE OF ADMISSION: 09/30/2017 CHIEF COMPLAINT: Hemoptysis and chest pain. HISTORY OF PRESENT ILLNESS: The patient is a very pleasant 21-year-old male who presented to the ER with ongoing hemoptysis and chest pain. He was here on 09/23/2017 with cough and hemoptysis having just gotten back from Spring break trip to [facility]. In [place], he also had a couple nights of sweats and feeling terrible. He did not know if he actually had a fever or not. He did have some nausea and vomiting and in the ER at that point in time he was found on a CT scan to have a fairly dense left lower lobe pneumonia as well as smaller patchy right lower and right mid pneumonias. He was treated with Augmentin and doxycycline and discharged to home. Since that time, he has not had any fevers, chills, or sweats. His constitutional symptoms have totally gone away. His shortness of breath, fatigue and dyspnea on exertion are not better but definitely are not worse, but he has had worsening left-sided pleuritic type chest pain worse whenever he takes a deep breath as well as ongoing cough and hemoptysis that seems to be worsening in terms of its frequency and production. He also notes a darkening of the blood that he is coughing up where now it is more of a dark red and at times even black. Other than that he has no new symptoms. REVIEW OF SYSTEMS: Otherwise entirely negative and he has no sick contacts. PAST MEDICAL HISTORY: Includes asthma. HOME MEDICATIONS: Flovent b.i.d., albuterol p.r.n., EpiPen p.r.n. allergies and recently the Augmentin and doxycycline. ALLERGIES: INCLUDE TREE NUT AND PEAS. FAMILY HISTORY: None of significance. PAST SURGICAL HISTORY: Had a shoulder surgery. 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 He smokes marijuana and drinks alcohol. PHYSICAL EXAMINATION: VITAL SIGNS: Temp 36.5, pulse 88, respiratory rate 18, blood pressure 141/82, 93% on room air. GENERAL: He is awake, alert, oriented x3, pleasant, in no acute distress. HEENT: Normocephalic, atraumatic. Mucous membranes are moist. CARDIOVASCULAR: Regular rate. LUNGS: Unlabored. No use of accessory muscles. Good effort. No abdominal breathing. No neck breathing. SKIN: Shows no rashes, no pallor or icterus. NEUROLOGIC: Shows cranial nerves II-XII to be grossly intact. MENTAL STATE: Shows good recent and remote recall. Normal mood and affect. Good judgment and insight. MUSCULOSKELETAL: Yields no gross deformities. LABS AND DIAGNOSTICS: The entirety of his chart from both the and today were reviewed. His CBC at neither time shows a leukocytosis. A week ago he had 72% neutrophils, now he is down to 70%. His sed rate was 20, now it is down to 15. His hemoglobin is 16.5, platelets 284. Complete metabolic panel with a sodium 137, potassium 3.6, chloride 103, CO2 29, BUN 17, creatinine 1.01, calcium 8.8, glucose 100, total bilirubin 0.6, AST 13, ALT 16, alkaline phosphatase 86. Troponin of less than 0.015. CRP is 1.02 and it actually was 11.6 a week ago. Total protein 7.9, albumin 3.6, his procalcitonin is negative at less than 0.015. Flu swabs negative. Chest x-rays from last week and now showed extremely subtle bibasilar opacities really mostly I can only see them with the assistance of radiology. However, his chest CT shows a rather obvious left base, lesser degree right base and right mid inflammatory type opacities. Radiology does call the one in the right upper part of the lung field more of a nodular, but likely inflammatory. He had lower extremity venous Dopplers that were negative. The CT of his chest was also negative for PE last week. The venous Dopplers were negative today. ASSESSMENT AND PLAN: Cough, hemoptysis and pleuritic type chest pain. After extensive discussions with the patient, review of all of his data and considering the entirety of his story, it seems by far most consistent with a slowly resolving, likely very dense, very inflamed pneumonia. His inflammatory markers have dropped dramatically in the last week. It would be interesting to know what his procalcitonin was last week, but a negative procalcitonin now as well as the resolution of his constitutional symptoms certainly pleads extremely heavily against any kind of active infection. In general, the worsening of the pleuritic pain is exactly in the area of where his pneumonia was and it is likely simply a little bit later than expected. Likewise, the worsening of his cough. Certainly it is very common to see a cough become more productive after antibiotic treatment and as we were discussing things really if he was presenting 3 or 4 days ago instead of today would be almost without hesitation that this was simply a picture of a resolving pneumonia and therefore on the basis of only a couple of days difference, especially without dense left lower lung field findings were, especially with all the other reassurance, it is extremely unlikely to have anything else at play. We did discuss the possibility of an unresolving or refractory pneumonia. He was not in any situation that would put him at risk for exotic pathogens really more just resistant pathogens and his non-worsening particularly in any type of a septic or hypoxic way is very reassuring in this respect. We also discussed allergic or immunologic type findings discussing, Number 1 their extreme rarity, number 2 is lack of any other signs or symptoms consistent with that and number 3 is the fact that he is stable enough that if those were at play figuring it out over the next few weeks simply by his clinical presentation not resolving followed by then pulmonary evaluation and/or bronchoscopy would be reasonable, but the absolute low probability of this makes it so unlikely that keeping him in the hospital for such workup seems fruitless and likely more raw with iatrogenic harm than benefit. After discussion of all of this, he was asking spontaneously if it would be okay for him to go home. We discussed that this would be safe, particularly given his overall stability and the high probability of the situation simply being that of resolving pneumonia. We discussed taking ibuprofen 600 mg q. 6 hours p.r.n., pleuritic pain, taking it with food. Discussed following up immediately should he develop a new fever or worsening shortness of breath if neither of those would fit with a working diagnosis and then working on getting him set up with routine follow up until he is all better. He discussed a preference to utilize somebody over here in that respect, so I have taken the liberty of trying to get him set up with one of our [facility] residents for followup later this week as well as weekly thereafter involving our nurse navigator but also giving the patient instructions, phone number and address as a safety net. He does not appear to warrant any further antibiotic treatment. He certainly appears stable for home and he was very pleased with my assessment and my explanations of everything.
[2017-09-30] MEDS ORDERED: FLUTICASONE HFA 110MCG INHALER INH SCH (21:00)
== END 2017-09-30 20:20 | disposition home or self-care (01) ==
LOC: C.EDB 16:19 → CANRESERV 18:55 → ENRESERV 18:55 → C.EDA 20:20
DX: J18.9 Pneumonia, unspecified organism (principal); J45.909 Unspecified asthma, uncomplicated; F17.210 Nicotine dependence, cigarettes, uncomplicated; F12.90 Cannabis use, unspecified, uncomplicated; Z91.018 Allergy to other foods; Z91.048 Other nonmedicinal substance allergy status